=== PATIENT | female | born 1950 | race Caucasian/White ===

== ENCOUNTER 2021-02-23 23:58 | Inpatient (IN) ==
[2021-02-24] MEDS: Morphine 2 MG/ML SYRINGE IV PRN ×5 (02:39→11:12)
[2021-02-24] MEDS ORDERED: Lactated Ringers 1000 ml BAG 1,000 ML IV SCH (03:00)
[2021-02-24] MEDS ORDERED: cefTRIAXone 1 gm/50 mL NS BAG 1 GM/50 ML BAG IVPB SCH (05:00)
[2021-02-24] MEDS: Heparin 5000 UNITS/ML 1 mL VIAL SUBCUT SCH ×2 (05:37→20:46)
[2021-02-24] MEDS: metroNIDAZOLE IV 500 MG/100ML 500 MG/100 ML BAG IVPB SCH ×2 (05:39→20:46)
[2021-02-24 06:11] LABS: Hematocrit 36 % (35-47); Hemoglobin 11.9 g/dL (12.0-16.0); Mean Corpuscular HGB Conc 33 g/dL (31-36); Mean Corpuscular Hemoglobin 28 pg (27-31); Mean Corpuscular Volume 85 fL (80-97); Mean Platelet Volume 8.3 fL (7.4-10.4); Platelet Count 193 10^3/uL (150-450); Red Blood Count 4.19 10^6 /uL (3.70-4.87); Red Cell Distribution Width 14 % (10-15); White Blood Count 2.9 10^3/uL (3.5-10.8)
[2021-02-24 06:23] LABS: Albumin 3.6 g/dL (3.2-5.2); Albumin/Globulin Ratio 1.3 (1-3); C Reactive Protein 100.68 mg/L (<8.01); Calcium 8.8 mg/dL (8.6-10.3); EGFR African American 75.1 (>60); EGFR Non-African American 62.1 (>60); Globulin 2.7 g/dL (2-4); Potassium 4.3 mmol/L (3.5-5.0); Total Bilirubin 1.3 mg/dL (0.2-1.0); Total Protein 6.3 g/dL (6.4-8.9)
[2021-02-24 06:44] LABS: ABS Lymphocytes 0.7 10^3/ul (1.0-4.8); ABS Monocytes 0.1 10^3/ul (0-0.8); ABS Neutrophils 2.2 10^3/ul (1.5-7.7); Lymphocyte % 22.3 %
[2021-02-24 06:48] LABS: RBC Morphology Normal (Normal)
[2021-02-24 06:59] LABS: Urine Appearance Clear; Urine Bilirubin Negative (Negative); Urine Blood Negative (Negative); Urine Color Yellow; Urine Glucose Negative (Negative); Urine Ketones Negative (Negative); Urine Nitrite Negative (Negative); Urine Protein Negative (Negative); Urine Specific Gravity 1.023 (1.002-1.030); Urine Urobilinogen Negative (Negative)
[2021-02-24] MEDS: Acetaminophen IV 1 GM/100ML 100 ML IV PRN (08:18)
[2021-02-24] MEDS ORDERED: Bupivacaine 0.25% SDV 30 ML ONE (12:28)
[2021-02-24] MEDS ORDERED: fentaNYL 250 mcg/5 ml 50 MCG/ML 5 ml VIAL (250 MCG) ONE (12:40)
[2021-02-24] MEDS ORDERED: Midazolam 2 mg/2 ml VIAL 1 mg/ml 2 ml VIAL (2 mg) ONE (12:40)
[2021-02-24] MEDS ORDERED: Phenylephrine IV 10 MG/ML 1 ml VIAL ONE ×2 (12:41→17:00)
[2021-02-24] MEDS ORDERED: Dexamethasone IV 4 MG/ML VIAL 1 ml VIAL ONE (12:41)
[2021-02-24] MEDS ORDERED: Lidocaine 2% PF 5 ML VIAL ONE (12:41)
[2021-02-24] MEDS ORDERED: Propofol 10 MG/ML 20 ML BTL ONE (12:41)
[2021-02-24] MEDS ORDERED: Rocuronium 50 mg VIAL 10 mg/ml 5 ml VIAL (50 mg) ONE (12:48)
[2021-02-24] MEDS ORDERED: HYDROmorphone 1 MG/1 ML SYRINGE ONE (14:39)
[2021-02-24] MEDS ORDERED: fentaNYL 100 mcg/2 ml 50 MCG/ML VIAL ONE ×2 (14:43→16:45)
[2021-02-24] MEDS ORDERED: fentaNYL 100 mcg/2 ml 50 MCG/ML VIAL IV PRN (14:54)
[2021-02-24] MEDS ORDERED: HYDROmorphone 1 MG/1 ML SYRINGE IV PRN (14:54)
[2021-02-24] MEDS ORDERED: Naloxone 0.4 mg VIAL 0.4 mg/ml 1 ml VIAL IV PRN (14:54)
[2021-02-24] MEDS ORDERED: Acetaminophen IV 1 GM/100ML 100 ML IV PRN (14:54)
[2021-02-24] MEDS ORDERED: Ondansetron 4 mg VIAL 2 MG/ML 2 ml VIAL IV PRN (14:54)
[2021-02-24] MEDS ORDERED: Ondansetron 4 mg VIAL 2 MG/ML 2 ml VIAL ONE (15:53)
[2021-02-24] MEDS ORDERED: Naloxone 0.4 mg VIAL 0.4 mg/ml 1 ml VIAL IV PUSH PRN ×2 (16:38→16:56)
[2021-02-24] MEDS ORDERED: Morphine PCA ADULT 5 MG/ML 30 ML PCA SCH (16:45)
[2021-02-24] MEDS ORDERED: HYDROmorphone PCA 20 MG/20 ML PCA.SYRING PCA SCH (17:00)
[2021-02-24] MEDS ORDERED: NS 0.9% 1000 ml BAG 1,000 ML IV ONE ×2 (20:09→22:33)
[2021-02-24] MEDS: NS 0.9% 1000 ml BAG 1,000 ML IV SCH (21:23)
[2021-02-24] MEDS: ZOSYN 3.375 GM Q8H per EXTENDED INFUSION IV SCH (21:23)
[2021-02-25] MEDS ORDERED: NS 0.9% 1000 ml BAG 1,000 ML IV ONE (00:56)
[2021-02-25] MEDS ORDERED: NS 0.9% 100 ml BAG 100 ML ONE (04:43)
[2021-02-25] MEDS: ZOSYN 3.375 GM Q8H per EXTENDED INFUSION IV SCH ×3 (04:47→20:00)
[2021-02-25] MEDS ORDERED: NS 0.9% 1000 ml BAG 500 ML IV ONE (04:56)
[2021-02-25] MEDS: Acetaminophen IV 1 GM/100ML 100 ML IV PRN ×3 (05:01→18:03)
[2021-02-25 07:17] LABS: Hematocrit 31 % (35-47); Hemoglobin 10.3 g/dL (12.0-16.0); Mean Corpuscular HGB Conc 34 g/dL (31-36); Mean Corpuscular Hemoglobin 29 pg (27-31); Mean Corpuscular Volume 86 fL (80-97); Mean Platelet Volume 9.2 fL (7.4-10.4); Platelet Count 157 10^3/uL (150-450); Red Blood Count 3.55 10^6 /uL (3.70-4.87); Red Cell Distribution Width 14 % (10-15); White Blood Count 5.9 10^3/uL (3.5-10.8)
[2021-02-25 07:35] LABS: EGFR African American 97.2 (>60); EGFR Non-African American 80.3 (>60); Magnesium 1.3 mg/dL (1.9-2.7); Potassium 3.6 mmol/L (3.5-5.0)
[2021-02-25 08:10] LABS: RBC Morphology Normal (Normal)
[2021-02-25 08:11] LABS: ABS Lymphocytes 0.6 10^3/ul (1.0-4.8); ABS Monocytes 0.2 10^3/ul (0-0.8); ABS Neutrophils 5.1 10^3/ul (1.5-7.7); Lymphocyte % 10.6 %
[2021-02-25] MEDS: Heparin 5000 UNITS/ML 1 mL VIAL SUBCUT SCH ×2 (10:20→18:00)
[2021-02-25] MEDS ORDERED: Magnesium Sulf 4 GM/100 ML IV 4,000 MG/100 ML BAG IVPB ONE (11:00)
[2021-02-25 11:17] LABS: Phosphorus 2.4 mg/dL (2.5-5.0)
[2021-02-25] MEDS: NS 0.9% 1000 ml BAG 1,000 ML IV SCH ×2 (13:18→21:07)
[2021-02-25] MEDS: Morphine 2 MG/ML SYRINGE IV PRN (21:07)
[2021-02-26] MEDS: Heparin 5000 UNITS/ML 1 mL VIAL SUBCUT SCH ×3 (02:04→17:30)
[2021-02-26] MEDS: NS 0.9% 1000 ml BAG 1,000 ML IV SCH ×2 (03:09→13:00)
[2021-02-26] MEDS: ZOSYN 3.375 GM Q8H per EXTENDED INFUSION IV SCH ×3 (04:35→20:14)
[2021-02-26 06:11] LABS: ABS Lymphocytes 0.8 10^3/ul (1.0-4.8); ABS Monocytes 0.3 10^3/ul (0-0.8); ABS Neutrophils 9.5 10^3/ul (1.5-7.7); Eosinophil % 0.1 %; Hematocrit 30 % (35-47); Lymphocyte % 7.9 %; Mean Corpuscular HGB Conc 33 g/dL (31-36); Mean Corpuscular Hemoglobin 28 pg (27-31); Mean Corpuscular Volume 86 fL (80-97); Mean Platelet Volume 8.6 fL (7.4-10.4); Platelet Count 190 10^3/uL (150-450); Red Blood Count 3.52 10^6 /uL (3.70-4.87); Red Cell Distribution Width 14 % (10-15); White Blood Count 10.7 10^3/uL (3.5-10.8)
[2021-02-26 06:32] LABS: Calcium 7.4 mg/dL (8.6-10.3); EGFR African American 92.7 (>60); EGFR Non-African American 76.6 (>60); Magnesium 2.1 mg/dL (1.9-2.7); Potassium 3.4 mmol/L (3.5-5.0)
[2021-02-26] MEDS ORDERED: Potassium Chlor 20 meq TAB.ER PO ONE (10:09)
[2021-02-26 10:32] LABS: Phosphorus 1.7 mg/dL (2.5-5.0)
[2021-02-26] MEDS ORDERED: NS IV ONE (15:00)
[2021-02-26] MEDS ORDERED: SODIUM PHOSPHATE IV ONE (15:00)
[2021-02-26] MEDS: Calcium (OSCAL) 500 mg TAB PO SCH (15:49)
[2021-02-27] MEDS: Heparin 5000 UNITS/ML 1 mL VIAL SUBCUT SCH ×3 (02:12→17:41)
[2021-02-27] MEDS: NS 0.9% 1000 ml BAG 1,000 ML IV SCH (02:12)
[2021-02-27] MEDS: ZOSYN 3.375 GM Q8H per EXTENDED INFUSION IV SCH ×3 (05:27→20:31)
[2021-02-27 06:17] LABS: Hematocrit 30 % (35-47); Hemoglobin 9.8 g/dL (12.0-16.0); Mean Corpuscular HGB Conc 33 g/dL (31-36); Mean Corpuscular Hemoglobin 28 pg (27-31); Mean Corpuscular Volume 85 fL (80-97); Mean Platelet Volume 7.9 fL (7.4-10.4); Platelet Count 237 10^3/uL (150-450); Red Blood Count 3.52 10^6 /uL (3.70-4.87); Red Cell Distribution Width 14 % (10-15); White Blood Count 14.9 10^3/uL (3.5-10.8)
[2021-02-27 06:40] LABS: Calcium 7.6 mg/dL (8.6-10.3); EGFR African American 119.9 (>60); EGFR Non-African American 99.1 (>60); Magnesium 1.6 mg/dL (1.9-2.7); Phosphorus 1.6 mg/dL (2.5-5.0); Potassium 3.2 mmol/L (3.5-5.0)
[2021-02-27] MEDS ORDERED: Magnesium Sulfate 2 gm BAG 2 GM/50 ML BAG IVPB ONE (07:11)
[2021-02-27] MEDS ORDERED: Sodium Phosphate IV 15 MMOLE in NS 0.9% 250 ml 250 ML IV ONE (07:30)
[2021-02-27 08:52] LABS: ABS Eosinophils 0.1 10^3/ul (0-0.6); ABS Monocytes 0.3 10^3/ul (0-0.8); ABS Neutrophils 13.5 10^3/ul (1.5-7.7); Eosinophil % 0.3 %; Lymphocyte % 6.7 %
[2021-02-27] MEDS: Calcium (OSCAL) 500 mg TAB PO SCH (08:54)
[2021-02-27] MEDS ORDERED: Potassium Chlor 20 meq TAB.ER PO SCH (09:00)
[2021-02-27] MEDS ORDERED: Calcium (OSCAL) 500 mg TAB PO ONE (10:40)
[2021-02-27] MEDS ORDERED: Furosemide 20 mg/2 ml IV VIAL IV SLOW PU ONE (13:16)
[2021-02-27] MEDS ORDERED: Furosemide 40 mg/4 ml IV VIAL IV ONE (14:01)
[2021-02-27] MEDS ORDERED: Furosemide 20 mg/2 ml IV VIAL IV ONE (14:34)
[2021-02-27] MEDS: Ondansetron 4 mg VIAL 2 MG/ML 2 ml VIAL IV PRN ×2 (14:41→21:17)
[2021-02-27 16:15] LABS: Urine Appearance Clear; Urine Bilirubin Negative (Negative); Urine Blood 1+ (Negative); Urine Color Colorless; Urine Glucose Negative (Negative); Urine Ketones Negative (Negative); Urine Nitrite Negative (Negative); Urine Protein Negative (Negative); Urine Specific Gravity 1.004 (1.002-1.030); Urine Urobilinogen Negative (Negative)
[2021-02-27 16:41] LABS: Urine Bacteria 1+ (Absent); Urine Red Blood Cell Trace(0-2/hpf) (Absent); Urine Squamous Epithelial Cell Present (Absent); Urine White Blood Cell Trace(0-5/hpf) (Absent)
[2021-02-27] MEDS ORDERED: Potassium Chlor 20 meq TAB.ER PO ONE (18:24)
[2021-02-27 21:12] LABS: Calcium 7.7 mg/dL (8.6-10.3); EGFR African American 124.7 (>60); EGFR Non-African American 103.1 (>60); Magnesium 1.7 mg/dL (1.9-2.7); Phosphorus 1.8 mg/dL (2.5-5.0); Potassium 3.2 mmol/L (3.5-5.0)
[2021-02-27] MEDS ORDERED: Al Hydrox/Mg Hydrox/Simet LIQ 30 ML UDC PO ONE (23:37)
[2021-02-28] MEDS ORDERED: Magnesium Sulfate 2 gm BAG 2 GM/50 ML BAG IVPB ONE (01:15)
[2021-02-28] MEDS ORDERED: Potassium Phosphate IV 10 MMOLE in NS 0.9% 250 ml 250 ML IVPB ONE (01:30)
[2021-02-28] MEDS: KCL 10 MEQ/50 ML IVPREMIX 10 MEQ/50 ML BAG IV SCH ×2 (02:44→05:54)
[2021-02-28] MEDS: Heparin 5000 UNITS/ML 1 mL VIAL SUBCUT SCH ×3 (02:44→18:16)
[2021-02-28] MEDS: Ondansetron 4 mg VIAL 2 MG/ML 2 ml VIAL IV PRN (03:54)
[2021-02-28] MEDS: ZOSYN 3.375 GM Q8H per EXTENDED INFUSION IV SCH ×3 (04:16→19:58)
[2021-02-28 06:46] LABS: Hematocrit 30 % (35-47); Mean Corpuscular HGB Conc 34 g/dL (31-36); Mean Corpuscular Hemoglobin 28 pg (27-31); Mean Corpuscular Volume 84 fL (80-97); Mean Platelet Volume 8.9 fL (7.4-10.4); Platelet Count 241 10^3/uL (150-450); Red Blood Count 3.53 10^6 /uL (3.70-4.87); Red Cell Distribution Width 14 % (10-15); White Blood Count 11.7 10^3/uL (3.5-10.8)
[2021-02-28 06:58] LABS: Calcium 7.8 mg/dL (8.6-10.3); EGFR African American 141.5 (>60); EGFR Non-African American 116.9 (>60); Magnesium 2.1 mg/dL (1.9-2.7); Potassium 3.3 mmol/L (3.5-5.0)
[2021-02-28 07:59] LABS: ABS Lymphocytes 1.2 10^3/ul (1.0-4.8); ABS Monocytes 0.6 10^3/ul (0-0.8); ABS Neutrophils 9.9 10^3/ul (1.5-7.7); Lymphocyte % 9.9 %
[2021-02-28] MEDS ORDERED: Sodium Phosphate IV 15 MMOLE in NS 0.9% 250 ml 250 ML IV ONE (09:00)
[2021-02-28] MEDS ORDERED: HYDROmorphone 1 MG/1 ML SYRINGE IV SLOW PU PRN (09:01)
[2021-02-28] MEDS: Potassium Chlor 20 meq TAB.ER PO SCH ×2 (09:31→21:30)
[2021-02-28] MEDS: Calcium (OSCAL) 500 mg TAB PO SCH (09:31)
[2021-02-28] MEDS: Senna TAB 8.6 mg TAB PO SCH (21:29)
[2021-03-01] MEDS: Heparin 5000 UNITS/ML 1 mL VIAL SUBCUT SCH ×3 (02:16→18:19)
[2021-03-01] MEDS: ZOSYN 3.375 GM Q8H per EXTENDED INFUSION IV SCH ×3 (04:49→20:19)
[2021-03-01 06:29] LABS: Hematocrit 32 % (35-47); Hemoglobin 10.6 g/dL (12.0-16.0); Mean Corpuscular HGB Conc 33 g/dL (31-36); Mean Corpuscular Hemoglobin 28 pg (27-31); Mean Corpuscular Volume 84 fL (80-97); Platelet Count 285 10^3/uL (150-450); Red Blood Count 3.81 10^6 /uL (3.70-4.87); Red Cell Distribution Width 13 % (10-15); White Blood Count 14.7 10^3/uL (3.5-10.8)
[2021-03-01 06:45] LABS: Calcium 7.8 mg/dL (8.6-10.3); EGFR African American 135.4 (>60); EGFR Non-African American 111.9 (>60); Magnesium 1.6 mg/dL (1.9-2.7); Potassium 3.6 mmol/L (3.5-5.0)
[2021-03-01] MEDS: Calcium (OSCAL) 500 mg TAB PO SCH (09:49)
[2021-03-01] MEDS: Potassium Chlor 20 meq TAB.ER PO SCH (09:49)
[2021-03-01] MEDS ORDERED: Potassium Chlor 20 meq TAB.ER PO ONE (13:21)
[2021-03-01] MEDS ORDERED: Magnesium Sulfate IV 3 GM in NS 0.9% 100 ml BAG 100 ML IVPB ONE (13:30)
[2021-03-01] MEDS ORDERED: Sodium Phosphate IV 10 MMOLE in NS 0.9% 250 ml 250 ML IV ONE (14:00)
[2021-03-01] MEDS: Senna TAB 8.6 mg TAB PO SCH (20:19)
[2021-03-02] MEDS: Heparin 5000 UNITS/ML 1 mL VIAL SUBCUT SCH ×3 (02:21→18:05)
[2021-03-02] MEDS: ZOSYN 3.375 GM Q8H per EXTENDED INFUSION IV SCH ×2 (04:05→12:17)
[2021-03-02 05:58] LABS: Hematocrit 31 % (35-47); Hemoglobin 10.7 g/dL (12.0-16.0); Mean Corpuscular HGB Conc 34 g/dL (31-36); Mean Corpuscular Hemoglobin 28 pg (27-31); Mean Corpuscular Volume 83 fL (80-97); Mean Platelet Volume 8.4 fL (7.4-10.4); Platelet Count 341 10^3/uL (150-450); Red Blood Count 3.78 10^6 /uL (3.70-4.87); Red Cell Distribution Width 13 % (10-15); White Blood Count 17.2 10^3/uL (3.5-10.8)
[2021-03-02 06:18] LABS: EGFR Non-African American 105.2 (>60); Potassium 3.4 mmol/L (3.5-5.0)
[2021-03-02 06:19] LABS: Calcium 7.6 mg/dL (8.6-10.3); EGFR African American 127.2 (>60); Magnesium 1.8 mg/dL (1.9-2.7); Phosphorus 2.6 mg/dL (2.5-5.0)
[2021-03-02] MEDS: Potassium Chlor 20 meq TAB.ER PO SCH (08:03)
[2021-03-02] MEDS: Calcium (OSCAL) 500 mg TAB PO SCH (08:03)
[2021-03-02] MEDS ORDERED: Magnesium Sulfate 2 gm BAG 2 GM/50 ML BAG IVPB ONE (08:04)
[2021-03-02] MEDS ORDERED: Calcium (OSCAL) 500 mg TAB PO ONE (08:05)
[2021-03-02] MEDS ORDERED: NS 0.9% 1000 ml BAG 1,000 ML IV ONE (10:30)
[2021-03-02] MEDS ORDERED: Iohexol 300 (CONTRAST) 10 ML SDV IV ONE (12:36)
[2021-03-02] MEDS ORDERED: Vancomycin 1,000 MG in NS 0.9% 250 ml 250 ML IVPB ONE (18:30)
[2021-03-02] MEDS ORDERED: Potassium Chlor 20 meq TAB.ER PO ONE (21:00)
[2021-03-02] MEDS: Cefepime 2 GM in Dextrose 2 GM/50 ML BAG IV SCH (21:16)
[2021-03-02] MEDS: Senna TAB 8.6 mg TAB PO SCH (21:16)
[2021-03-02] MEDS ORDERED: Vancomycin per Pharmacy 1 EA NOTE FOLLOW UP PRN (22:05)
[2021-03-03] MEDS: Vancomycin 750 MG in NS 0.9% 250 ML IVPB SCH ×3 (02:09→17:57)
[2021-03-03] MEDS: Heparin 5000 UNITS/ML 1 mL VIAL SUBCUT SCH ×3 (02:09→17:57)
[2021-03-03] MEDS: Potassium Chlor 20 meq TAB.ER PO SCH (09:00)
[2021-03-03] MEDS: Calcium (OSCAL) 500 mg TAB PO SCH ×2 (09:00→13:56)
[2021-03-03] MEDS: Cefepime 2 GM in Dextrose 2 GM/50 ML BAG IV SCH ×2 (09:00→21:10)
[2021-03-03 11:44] LABS: Hematocrit 30 % (35-47); Mean Corpuscular HGB Conc 34 g/dL (31-36); Mean Corpuscular Hemoglobin 28 pg (27-31); Mean Corpuscular Volume 83 fL (80-97); Mean Platelet Volume 8.2 fL (7.4-10.4); Platelet Count 374 10^3/uL (150-450); Red Blood Count 3.53 10^6 /uL (3.70-4.87); Red Cell Distribution Width 14 % (10-15); White Blood Count 17.7 10^3/uL (3.5-10.8)
[2021-03-03 12:03] LABS: Calcium 7.7 mg/dL (8.6-10.3); EGFR African American 144.7 (>60); EGFR Non-African American 119.6 (>60); Magnesium 1.7 mg/dL (1.9-2.7); Phosphorus 2.3 mg/dL (2.5-5.0); Potassium 3.6 mmol/L (3.5-5.0)
[2021-03-03 12:39] LABS: ABS Basophils 0.1 10^3/ul (0-0.2); ABS Eosinophils 0.1 10^3/ul (0-0.6); ABS Lymphocytes 1.6 10^3/ul (1.0-4.8); ABS Monocytes 0.9 10^3/ul (0-0.8); Eosinophil % 0.4 %; Lymphocyte % 8.8 %
[2021-03-03] MEDS ORDERED: Magnesium Sulfate 2 gm BAG 2 GM/50 ML BAG IVPB ONE (13:01)
[2021-03-03] MEDS ORDERED: NS IV ONE (13:01)
[2021-03-03] MEDS ORDERED: SODIUM PHOSPHATE IV ONE (13:01)
[2021-03-03] MEDS ORDERED: Potassium Chlor 20 meq TAB.ER PO ONE (13:02)
[2021-03-03] MEDS: Senna TAB 8.6 mg TAB PO SCH (21:10)
[2021-03-04] MEDS: Vancomycin 750 MG in NS 0.9% 250 ML IVPB SCH ×3 (02:19→18:25)
[2021-03-04] MEDS: Heparin 5000 UNITS/ML 1 mL VIAL SUBCUT SCH ×3 (02:19→18:25)
[2021-03-04] MEDS ORDERED: Al Hydrox/Mg Hydrox/Simet LIQ 30 ML UDC PO PRN (04:00)
[2021-03-04 06:06] LABS: Hematocrit 29 % (35-47); Hemoglobin 9.8 g/dL (12.0-16.0); Mean Corpuscular HGB Conc 34 g/dL (31-36); Mean Corpuscular Hemoglobin 29 pg (27-31); Mean Corpuscular Volume 84 fL (80-97); Mean Platelet Volume 8.7 fL (7.4-10.4); Platelet Count 430 10^3/uL (150-450); Red Blood Count 3.42 10^6 /uL (3.70-4.87); Red Cell Distribution Width 14 % (10-15); White Blood Count 21.3 10^3/uL (3.5-10.8)
[2021-03-04 06:15] LABS: Albumin 2.8 g/dL (3.2-5.2); Albumin/Globulin Ratio 0.9 (1-3); Calcium 7.7 mg/dL (8.6-10.3); EGFR African American 155.2 (>60); EGFR Non-African American 128.2 (>60); Phosphorus 2.9 mg/dL (2.5-5.0); Potassium 3.8 mmol/L (3.5-5.0); Total Bilirubin 0.5 mg/dL (0.2-1.0); Total Protein 5.8 g/dL (6.4-8.9)
[2021-03-04 07:02] LABS: Magnesium 1.9 mg/dL (1.9-2.7)
[2021-03-04] MEDS: Potassium Chlor 20 meq TAB.ER PO SCH (09:10)
[2021-03-04] MEDS: Calcium (OSCAL) 500 mg TAB PO SCH ×2 (09:10→09:44)
[2021-03-04] MEDS ORDERED: Vancomycin Trough Check NOTE FOLLOW UP ONE (09:30)
[2021-03-04] MEDS: Cefepime 2 GM in Dextrose 2 GM/50 ML BAG IV SCH ×2 (10:00→20:39)
[2021-03-04 10:12] LABS: C Reactive Protein 98.07 mg/L (<8.01)
[2021-03-04] MEDS ORDERED: Magnesium Sulfate IV 1GM/100ML 1 GM/100 ML BAG IV ONE (12:48)
[2021-03-04] MEDS: Senna TAB 8.6 mg TAB PO SCH (20:39)
[2021-03-05] MEDS: Vancomycin 750 MG in NS 0.9% 250 ML IVPB SCH ×3 (02:03→17:59)
[2021-03-05] MEDS: Heparin 5000 UNITS/ML 1 mL VIAL SUBCUT SCH ×3 (02:03→17:59)
[2021-03-05 06:20] LABS: ABS Basophils 0.1 10^3/ul (0-0.2); ABS Eosinophils 0.2 10^3/ul (0-0.6); ABS Lymphocytes 2.3 10^3/ul (1.0-4.8); ABS Neutrophils 18.9 10^3/ul (1.5-7.7); Eosinophil % 0.9 %; Hematocrit 31 % (35-47); Hemoglobin 10.2 g/dL (12.0-16.0); Lymphocyte % 10.3 %; Mean Corpuscular HGB Conc 33 g/dL (31-36); Mean Corpuscular Hemoglobin 28 pg (27-31); Mean Corpuscular Volume 84 fL (80-97); Mean Platelet Volume 8.4 fL (7.4-10.4); Platelet Count 528 10^3/uL (150-450); Red Blood Count 3.64 10^6 /uL (3.70-4.87); Red Cell Distribution Width 14 % (10-15); White Blood Count 22.5 10^3/uL (3.5-10.8)
[2021-03-05 06:31] LABS: Calcium 8.3 mg/dL (8.6-10.3); EGFR African American 144.7 (>60); EGFR Non-African American 119.6 (>60); Magnesium 1.9 mg/dL (1.9-2.7)
[2021-03-05 08:16] LABS: C Reactive Protein 96.11 mg/L (<8.01)
[2021-03-05] MEDS: Calcium (OSCAL) 500 mg TAB PO SCH (08:47)
[2021-03-05] MEDS: Potassium Chlor 20 meq TAB.ER PO SCH (08:47)
[2021-03-05] MEDS: Cefepime 2 GM in Dextrose 2 GM/50 ML BAG IV SCH ×2 (08:47→20:04)
[2021-03-05 10:11] LABS: Urine Appearance Cloudy; Urine Bilirubin Negative (Negative); Urine Blood Negative (Negative); Urine Color Yellow; Urine Glucose Negative (Negative); Urine Ketones Negative (Negative); Urine Nitrite Negative (Negative); Urine Protein Negative (Negative); Urine Specific Gravity 1.017 (1.002-1.030); Urine Urobilinogen Negative (Negative)
[2021-03-05] MEDS ORDERED: Iohexol 350 (CONTRAST) 500 ML MDV IV ONE (10:20)
[2021-03-05] MEDS: Senna TAB 8.6 mg TAB PO SCH (20:05)
[2021-03-06] MEDS: Vancomycin 750 MG in NS 0.9% 250 ML IVPB SCH ×3 (01:29→17:58)
[2021-03-06] MEDS: Heparin 5000 UNITS/ML 1 mL VIAL SUBCUT SCH ×3 (01:29→17:58)
[2021-03-06 06:11] LABS: Hematocrit 29 % (35-47); Hemoglobin 9.7 g/dL (12.0-16.0); Mean Corpuscular HGB Conc 33 g/dL (31-36); Mean Corpuscular Hemoglobin 28 pg (27-31); Mean Corpuscular Volume 84 fL (80-97); Mean Platelet Volume 8.4 fL (7.4-10.4); Platelet Count 632 10^3/uL (150-450); Red Blood Count 3.48 10^6 /uL (3.70-4.87); Red Cell Distribution Width 14 % (10-15); White Blood Count 20.3 10^3/uL (3.5-10.8)
[2021-03-06 06:38] LABS: Calcium 8.4 mg/dL (8.6-10.3); EGFR African American 151.5 (>60); EGFR Non-African American 125.2 (>60); Magnesium 1.8 mg/dL (1.9-2.7); Potassium 3.9 mmol/L (3.5-5.0)
[2021-03-06 08:12] LABS: C Reactive Protein 64.06 mg/L (<8.01)
[2021-03-06] MEDS: Calcium (OSCAL) 500 mg TAB PO SCH (08:46)
[2021-03-06] MEDS: Cefepime 2 GM in Dextrose 2 GM/50 ML BAG IV SCH ×2 (08:46→20:47)
[2021-03-06] MEDS: Potassium Chlor 20 meq TAB.ER PO SCH (08:46)
[2021-03-06] MEDS ORDERED: NS 0.9% 500 ml BAG 500 ML IV ONE (08:52)
[2021-03-06] MEDS ORDERED: Vancomycin Trough Check NOTE FOLLOW UP ONE (09:30)
[2021-03-06 09:46] LABS: EGFR African American 151.5 (>60); EGFR Non-African American 125.2 (>60)
[2021-03-06 10:06] LABS: TSH Ultra Thyroid Stim Horm 2.59 mcIU/mL (0.34-5.60)
[2021-03-06] MEDS ORDERED: NS 0.9% 250 ml 250 ML IV ONE (11:31)
[2021-03-06] MEDS: Senna TAB 8.6 mg TAB PO SCH (20:47)
[2021-03-07] MEDS: Heparin 5000 UNITS/ML 1 mL VIAL SUBCUT SCH ×3 (01:50→18:09)
[2021-03-07] MEDS: Vancomycin 750 MG in NS 0.9% 250 ML IVPB SCH ×2 (01:51→09:59)
[2021-03-07] MEDS: Cefepime 2 GM in Dextrose 2 GM/50 ML BAG IV SCH ×2 (08:56→21:14)
[2021-03-07] MEDS: Calcium (OSCAL) 500 mg TAB PO SCH (08:59)
[2021-03-07] MEDS: Potassium Chlor 20 meq TAB.ER PO SCH (08:59)
[2021-03-07 09:06] LABS: Hematocrit 31 % (35-47); Hemoglobin 10.2 g/dL (12.0-16.0); Mean Corpuscular HGB Conc 33 g/dL (31-36); Mean Corpuscular Hemoglobin 28 pg (27-31); Mean Corpuscular Volume 84 fL (80-97); Platelet Count 777 10^3/uL (150-450); Red Blood Count 3.64 10^6 /uL (3.70-4.87); Red Cell Distribution Width 14 % (10-15)
[2021-03-07 09:23] LABS: Anion Gap 10 mmol/L (2-11); Blood Urea Nitrogen 9 mg/dL (6-24); CO2 Carbon Dioxide 29 mmol/L (22-32); Calcium 8.9 mg/dL (8.6-10.3); Chloride 96 mmol/L (101-111); EGFR African American 124.7 (>60); EGFR Non-African American 103.1 (>60); Glucose 114 mg/dL (70-100); Magnesium 1.8 mg/dL (1.9-2.7); Potassium 3.8 mmol/L (3.5-5.0); Sodium 135 mmol/L (135-145)
[2021-03-07 09:41] LABS: % Iron Saturation 9 % (15-55); Iron 24 ug/dL (50-212); Total Iron Binding Capacity 263 mcg/dL (250-450); Transferrin 188 mg/dL (203-362); Unsaturated Iron Binding < 248 ug/dL
[2021-03-07] MEDS: Lactated Ringers 1000 ml BAG 1,000 ML IV SCH (11:47)
[2021-03-07] MEDS: Senna TAB 8.6 mg TAB PO SCH (21:13)
[2021-03-08] MEDS: Lactated Ringers 1000 ml BAG 1,000 ML IV SCH (00:14)
[2021-03-08] MEDS: Heparin 5000 UNITS/ML 1 mL VIAL SUBCUT SCH ×3 (01:33→19:22)
[2021-03-08] MEDS ORDERED: Lactated Ringers 1000 ml BAG 1,000 ML IV SCH (07:15)
[2021-03-08] MEDS: Cefepime 2 GM in Dextrose 2 GM/50 ML BAG IV SCH ×2 (08:57→19:23)
[2021-03-08] MEDS: Potassium Chlor 20 meq TAB.ER PO SCH (08:57)
[2021-03-08] MEDS: Calcium (OSCAL) 500 mg TAB PO SCH (08:57)
[2021-03-08 10:34] LABS: Hematocrit 28 % (35-47); Hemoglobin 9.3 g/dL (12.0-16.0); Mean Corpuscular HGB Conc 33 g/dL (31-36); Mean Corpuscular Hemoglobin 28 pg (27-31); Mean Corpuscular Volume 84 fL (80-97); Mean Platelet Volume 7.7 fL (7.4-10.4); Platelet Count 744 10^3/uL (150-450); Red Blood Count 3.37 10^6 /uL (3.70-4.87); Red Cell Distribution Width 14 % (10-15)
[2021-03-08 10:53] LABS: Calcium 8.9 mg/dL (8.6-10.3); EGFR African American 122.3 (>60); EGFR Non-African American 101.1 (>60); Magnesium 1.7 mg/dL (1.9-2.7); Phosphorus 3.2 mg/dL (2.5-5.0); Potassium 3.7 mmol/L (3.5-5.0)
[2021-03-08 12:06] LABS: Ferritin 252.2 ng/mL (11-307)
[2021-03-08] MEDS: Senna TAB 8.6 mg TAB PO SCH (19:23)
[2021-03-09] MEDS: Heparin 5000 UNITS/ML 1 mL VIAL SUBCUT SCH ×2 (03:15→09:18)
[2021-03-09] MEDS: Cefepime 2 GM in Dextrose 2 GM/50 ML BAG IV SCH (09:18)
[2021-03-09] MEDS: Calcium (OSCAL) 500 mg TAB PO SCH (09:18)
[2021-03-09] MEDS: Potassium Chlor 20 meq TAB.ER PO SCH (09:18)
[2021-03-09] MEDS ORDERED: Vancomycin Trough Check NOTE FOLLOW UP ONE (09:30)
[2021-03-09 10:26] LABS: Hematocrit 30 % (35-47); Hemoglobin 9.7 g/dL (12.0-16.0); Mean Corpuscular HGB Conc 33 g/dL (31-36); Mean Corpuscular Hemoglobin 28 pg (27-31); Mean Corpuscular Volume 85 fL (80-97); Mean Platelet Volume 7.6 fL (7.4-10.4); Platelet Count 807 10^3/uL (150-450); Red Blood Count 3.48 10^6 /uL (3.70-4.87); Red Cell Distribution Width 14 % (10-15); White Blood Count 14.4 10^3/uL (3.5-10.8)
[2021-03-09 10:43] LABS: Calcium 9.3 mg/dL (8.6-10.3); EGFR African American 119.9 (>60); EGFR Non-African American 99.1 (>60); Magnesium 1.9 mg/dL (1.9-2.7)
[2021-03-09 11:35] VITALS: BP 114/48
== END 2021-03-09 13:30 | disposition home health service (06) | DRG 853 ==
LOC: EDSEX → ED 23:58 → SSU 02-24 02:24 → SUATTDRO 02-24 02:24 → SSU 02-24 04:50
PROVIDERS: ADMIT Student in an Organized Health Care Education/Training Program; ATTEND Internal Medicine